=== PATIENT | female | born 1945 | race Caucasian/White ===

== ENCOUNTER → 2018-11-06 | Outpatient (CLI) | payer MEDICARE, OTHER | LOC: LAB SHORT 18:04 → LAB EV 18:04 | DX: R30.0 Dysuria (principal) | CPT/HCPCS: 87077; 87086; 87186 ==

== ENCOUNTER → 2019-06-25 | Outpatient (CLI) | payer MEDICARE, OTHER | END | disposition home or self-care (01) | LOC: LAB SHORT 14:00 → LAB 14:00 | DX: N39.0 Urinary tract infection, site not specified (principal) | CPT/HCPCS: 87077; 87086; 87186 ==

== ENCOUNTER 2020-11-10 14:49 | Emergency (ER) | payer MEDICARE, OTHER ==
[~2020-11-10] VITALS: Ht 165.1 cm; Wt 63.5 kg
[~2020-11-10 14:49] MED LIST: VENL75ER PO; XANAX0.25 MG PO; ZESTRIL40 M1 PO
[2020-11-10] MEDS ORDERED: CLON.1 PO (15:00)
[2020-11-10] MEDS ORDERED: AMLODIPINE BESYL5 MG PO (15:01)
[2020-11-10 15:40] LABS: BASOPHILS ABSOLUTE AUTO 0.04 K/mm3 (0.00-0.23); BASOPHILS PERCENT AUTO 1 % (0-2); EOSINOPHILS PERCENT AUTO 0 % (0-6); Hematocrit 38.6 % (33.0-51.0); Hemoglobin 13.3 g/dL (11.5-16.0); IMMATURE GRAN ABSOLUTE AUTO 0.02 K/mm3 (0.00-0.10); IMMATURE GRAN PERCENT AUTO 0 % (0-1); LYMPHOCYTES ABSOLUTE AUTO 0.62 K/mm3 (0.84-5.20); LYMPHOCYTES PERCENT AUTO 8 % (21-46); MONOCYTES ABSOLUTE AUTO 0.45 K/mm3 (0.16-1.47); MONOCYTES PERCENT AUTO 6 % (4-13); Mean Corpuscular HGB 33.3 pg (26.0-34.0); Mean Corpuscular HGB Conc 34.5 g/dL (31.5-36.5); Mean Corpuscular Volume 97 fL (80-100); Mean Platelet Volume 9.6 fL (9.1-12.4); NEUTROPHILS ABSOLUTE AUTO 6.68 K/mm3 (1.96-9.15); NEUTROPHILS PERCENT AUTO 86 % (41-73); Platelet Count 258 K/mm3 (150-400); RDW Coefficient Variation 12.1 % (11.7-14.2); RDW Standard Deviation 43.6 fL (35.1-46.3); Red Blood Cell Count 3.99 M/mm3 (3.80-5.20); White Blood Cell Count 7.81 K/mm3 (4.00-11.30)
[2020-11-10 15:59] LABS: Alanine Aminotransfer (ALT/SGP 25 U/L (12-78); Albumin/Globulin Ratio 1.1 (0.8-1.8); Alk Phos 63 U/L (50-136); Anion Gap 7 mmol/L (6-16); Aspartate Aminotrans (AST/SGOT 18 U/L (12-37); Bilirubin, Total 0.4 mg/dL (0.1-1.0); Blood Urea Nitrogen 14 mg/dL (8-24); Bun/Creatinine Ratio 16.2 (12.0-20.0); CO2, Blood 24 mmol/L (21-32); Chloride, Blood 103 mmol/L (98-108); Creatinine, Blood 0.86 mg/dL (0.40-1.00); Globulin, Blood 3.5 g/dL (2.2-4.0); Glomerular Filtration Rate >60 (60-); Glucose, Blood 138 mg/dL (70-99); Sodium, Blood 134 mmol/L (136-145); Total Protein, Blood 7.5 g/dL (6.4-8.2); Troponin I <0.015 ng/mL (0.000-0.040)
[2020-11-10 16:02] LABS: International Normalized Ratio 1.02
[2020-11-10 18:04] LABS: Source, Urine Clean Catch
[2020-11-10] MEDS ORDERED: ONDA4 PO (18:24)
[2020-11-10 18:29] LABS: Appearance, Urine Clear (Clear); Bilirubin, Urine Neg (Neg); Blood, Urine 1+ (Neg); Color, Urine Yellow (P-Yellow); Glucose Qualitative, Urine Neg (Neg); Ketones, Urine Neg (Neg); Leukocyte Esterase, Urine Neg (Neg); Nitrite, Urine Neg (Neg); Protein, Urine Neg (Neg); Urobilinogen, Urine NORM (Normal)
[2020-11-10 18:40] LABS: Bacteria Few /hpf; Red Blood Cells, Urine Not Seen /hpf (0-2); Squamous Epithelial Cells Few /hpf (Few); White Blood Cells, Urine Rare /hpf (0-5)
[2020-11-13 11:08] LABS: APTT 30.6 sec (22.9-30.2)
== END 2020-11-10 18:35 | disposition home or self-care (01) ==
LOC: ER 14:49
PROVIDERS: Physician Assistant
DX: H81.10 Benign paroxysmal vertigo, unspecified ear (principal); Z88.0 Allergy status to penicillin; Z88.5 Allergy status to narcotic agent; Z79.899 Other long term (current) drug therapy; I10 Essential (primary) hypertension
CPT/HCPCS: 36415; 70450; 70496; 70498; 71045; 80053; 81001; 83690; 84484; 85025; 85610; 85730; 85732; 93005; 93010; 99285-25; J7030; Q9967

== ENCOUNTER → 2021-03-14 | Outpatient (CLI) | payer MEDICARE, OTHER ==
[~2021-03-14] MED LIST changes: +AMLODIPINE BESYL5 MG PO; +CLON.1 PO; +ONDA4 PO
[2021-03-14 18:45] LABS: BASOPHILS ABSOLUTE AUTO 0.02 K/mm3 (0.00-0.23); BASOPHILS PERCENT AUTO 0 % (0-2); EOSINOPHILS ABSOLUTE AUTO 0.02 K/mm3 (0.00-0.68); EOSINOPHILS PERCENT AUTO 0 % (0-6); Hematocrit 35.2 % (33.0-51.0); Hemoglobin 12.5 g/dL (11.5-16.0); IMMATURE GRAN ABSOLUTE AUTO 0.01 K/mm3 (0.00-0.10); IMMATURE GRAN PERCENT AUTO 0 % (0-1); LYMPHOCYTES ABSOLUTE AUTO 1.39 K/mm3 (0.84-5.20); LYMPHOCYTES PERCENT AUTO 23 % (21-46); MONOCYTES ABSOLUTE AUTO 0.75 K/mm3 (0.16-1.47); MONOCYTES PERCENT AUTO 13 % (4-13); Mean Corpuscular HGB 34.8 pg (26.0-34.0); Mean Corpuscular HGB Conc 35.5 g/dL (31.5-36.5); Mean Corpuscular Volume 98 fL (80-100); NEUTROPHILS ABSOLUTE AUTO 3.75 K/mm3 (1.96-9.15); NEUTROPHILS PERCENT AUTO 63 % (41-73); Platelet Count 360 K/mm3 (150-400); RDW Coefficient Variation 12.2 % (11.7-14.2); RDW Standard Deviation 44.3 fL (35.1-46.3); Red Blood Cell Count 3.59 M/mm3 (3.80-5.20); White Blood Cell Count 5.94 K/mm3 (4.00-11.30)
[2021-03-14 18:54] LABS: Albumin, Blood 4.7 g/dL (3.4-5.0); Albumin/Globulin Ratio 1.5 (0.8-1.8); Bilirubin, Total 0.5 mg/dL (0.1-1.0); Bun/Creatinine Ratio 10.8 (12.0-20.0); Creatinine, Blood 1.11 mg/dL (0.40-1.00); Globulin, Blood 3.2 g/dL (2.2-4.0); Total Protein, Blood 7.9 g/dL (6.4-8.2)
== END | disposition home or self-care (01) ==
LOC: LAB SHORT 18:40
PROVIDERS: Physician Assistant
DX: R21 Rash and other nonspecific skin eruption (principal)
CPT/HCPCS: 80053; 85025

== ENCOUNTER 2023-04-25 18:46 | Inpatient (IN) | payer OTHER, MEDICARE ==
[~2023-04-25] VITALS: Ht 165.1 cm; Wt 69.0 kg
[2023-04-25 22:19] LABS: BASOPHILS ABSOLUTE AUTO 0.03 K/mm3 (0.00-0.23); BASOPHILS PERCENT AUTO 0 % (0-2); EOSINOPHILS ABSOLUTE AUTO 0.09 K/mm3 (0.00-0.68); EOSINOPHILS PERCENT AUTO 1 % (0-6); Hematocrit 32.8 % (33.0-51.0); Hemoglobin 11.1 g/dL (11.5-16.0); IMMATURE GRAN ABSOLUTE AUTO 0.04 K/mm3 (0.00-0.10); IMMATURE GRAN PERCENT AUTO 1 % (0-1); LYMPHOCYTES ABSOLUTE AUTO 0.71 K/mm3 (0.84-5.20); LYMPHOCYTES PERCENT AUTO 9 % (21-46); MONOCYTES ABSOLUTE AUTO 0.51 K/mm3 (0.16-1.47); MONOCYTES PERCENT AUTO 6 % (4-13); Mean Corpuscular HGB 33.8 pg (26.0-34.0); Mean Corpuscular HGB Conc 33.8 g/dL (31.5-36.5); Mean Corpuscular Volume 100 fL (80-100); Mean Platelet Volume 10.2 fL (9.1-12.4); NEUTROPHILS ABSOLUTE AUTO 6.56 K/mm3 (1.96-9.15); NEUTROPHILS PERCENT AUTO 83 % (41-73); Platelet Count 286 K/mm3 (150-400); RDW Coefficient Variation 12.1 % (11.7-14.2); RDW Standard Deviation 44.9 fL (35.1-46.3); Red Blood Cell Count 3.28 M/mm3 (3.80-5.20); White Blood Cell Count 7.94 K/mm3 (4.00-11.30)
[2023-04-25 22:31] LABS: Albumin, Blood 3.8 g/dL (3.4-5.0); Albumin/Globulin Ratio 1.3 (0.8-1.8); Bilirubin, Total 0.3 mg/dL (0.1-1.0); Bun/Creatinine Ratio 12.9 (12.0-20.0); Calcium, Blood 8.4 mg/dL (8.5-10.1); Creatinine, Blood 1.01 mg/dL (0.40-1.00); Potassium, Blood 3.6 mmol/L (3.5-5.5); Total Protein, Blood 6.8 g/dL (6.4-8.2)
[2023-04-26] VITALS (8 sets, daily range): BP systolic 135–167; BP diastolic 57–97
--- NOTE | 2023-04-26 01:20 | NUR ---
ARRIVAL TO UNIT PT ARRIVED TO UNIT VIA GURNEY AT 0010. TRANSFERRED TO BED BY SLIDER SHEET. PT IN 2L NC, HAS PUREWICK IN PLACE. PT ALERT AND ORIENTED X2, PERSON AND PLACE. NEEDS TO BE REMINDED ABOUT THINGS, VERY UNSURE OF WHAT IS GOING ON. PT VERY AGREEABLE TO ALL CARE. LLE EXTREMITY SHORTENED, PT ABLE TO WIGGLE TOES, STRONG PEDAL PULSES, DENIES RADHA N/T. PT ENDORSES PAIN. MEDICATED PER EMAR. PT NPO, FLUIDS RUNNING, NO OTHER QUESTIONS AT THIS TIME. CALL LIGHT WITHIN REACH
--- NOTE | 2023-04-26 05:07 | NUR ---
SHIFT SUMMARY NO CHANGES SINCE COMING TO THE FLOOR. PT COMPLAIONS OF PAIN, MEDICATED PER EMAR. PUREWICK IN PLACE, DRAINING CLEAR YELLOW URINE. PT FORGETFUL, NEEDS REMINDING OF THINGS. CALLS OUT OCCASIONALLY. REMINDED TO USE CALL LIGHT IF NEEDING ASSISTANCE. IV FLUIDS RUNNING, NPO SINCE ARRIVAL. NO OTHER CONCERNS AT THIS TIME, CALL LIGHT WITHIN REACH.
[2023-04-26 05:57] LABS: BASOPHILS ABSOLUTE AUTO 0.03 K/mm3 (0.00-0.23); BASOPHILS PERCENT AUTO 0 % (0-2); EOSINOPHILS PERCENT AUTO 0 % (0-6); Hemoglobin 11.7 g/dL (11.5-16.0); IMMATURE GRAN ABSOLUTE AUTO 0.09 K/mm3 (0.00-0.10); IMMATURE GRAN PERCENT AUTO 1 % (0-1); LYMPHOCYTES PERCENT AUTO 2 % (21-46); MONOCYTES ABSOLUTE AUTO 1.17 K/mm3 (0.16-1.47); MONOCYTES PERCENT AUTO 6 % (4-13); Mean Corpuscular HGB 34.5 pg (26.0-34.0); Mean Corpuscular HGB Conc 35.5 g/dL (31.5-36.5); Mean Corpuscular Volume 97 fL (80-100); Mean Platelet Volume 10.1 fL (9.1-12.4); NEUTROPHILS ABSOLUTE AUTO 16.82 K/mm3 (1.96-9.15); NEUTROPHILS PERCENT AUTO 91 % (41-73); Platelet Count 281 K/mm3 (150-400); RDW Coefficient Variation 11.9 % (11.7-14.2); RDW Standard Deviation 42.5 fL (35.1-46.3); Red Blood Cell Count 3.39 M/mm3 (3.80-5.20); White Blood Cell Count 18.51 K/mm3 (4.00-11.30)
[2023-04-26 06:56] LABS: Bun/Creatinine Ratio 11.6 (12.0-20.0); Calcium, Blood 8.9 mg/dL (8.5-10.1); Creatinine, Blood 0.95 mg/dL (0.40-1.00)
[2023-04-26 12:04] LABS: Source, Urine Foley catheter
[2023-04-26 12:23] LABS: Appearance, Urine Hazy (Clear); Bilirubin, Urine Neg (Neg); Blood, Urine 1+ (Neg); Glucose Qualitative, Urine Neg (Neg); Ketones, Urine Neg (Neg); Leukocyte Esterase, Urine 2+ (Neg); Nitrite, Urine Neg (Neg); Protein, Urine Neg (Neg); Specific Gravity, Urine 1.015 (1.003-1.022); Urobilinogen, Urine NORM (Normal)
[2023-04-26 13:10] LABS: Color, Urine Pale Yellow (P-Yellow)
[2023-04-26 13:13] LABS: Bacteria Many /hpf; Red Blood Cells, Urine 0-2 /hpf (0-2); Squamous Epithelial Cells Rare /hpf (Few)
[2023-04-27 04:11] VITALS: BP 158/73
--- NOTE | 2023-04-27 05:58 | NUR ---
TO CT/RADIOLOGY VIA STRETCHER.
[2023-04-27 06:01] LABS: BASOPHILS ABSOLUTE AUTO 0.03 K/mm3 (0.00-0.23); BASOPHILS PERCENT AUTO 0 % (0-2); EOSINOPHILS ABSOLUTE AUTO 0.26 K/mm3 (0.00-0.68); EOSINOPHILS PERCENT AUTO 3 % (0-6); Hematocrit 33.2 % (33.0-51.0); Hemoglobin 11.4 g/dL (11.5-16.0); IMMATURE GRAN ABSOLUTE AUTO 0.02 K/mm3 (0.00-0.10); IMMATURE GRAN PERCENT AUTO 0 % (0-1); LYMPHOCYTES ABSOLUTE AUTO 1.05 K/mm3 (0.84-5.20); LYMPHOCYTES PERCENT AUTO 11 % (21-46); MONOCYTES ABSOLUTE AUTO 0.71 K/mm3 (0.16-1.47); MONOCYTES PERCENT AUTO 7 % (4-13); Mean Corpuscular HGB 34.3 pg (26.0-34.0); Mean Corpuscular HGB Conc 34.3 g/dL (31.5-36.5); Mean Corpuscular Volume 100 fL (80-100); Mean Platelet Volume 9.5 fL (9.1-12.4); NEUTROPHILS ABSOLUTE AUTO 7.77 K/mm3 (1.96-9.15); NEUTROPHILS PERCENT AUTO 79 % (41-73); Platelet Count 239 K/mm3 (150-400); RDW Coefficient Variation 12.1 % (11.7-14.2); RDW Standard Deviation 44.4 fL (35.1-46.3); Red Blood Cell Count 3.32 M/mm3 (3.80-5.20); White Blood Cell Count 9.84 K/mm3 (4.00-11.30)
[2023-04-27 06:26] LABS: Albumin, Blood 3.3 g/dL (3.4-5.0); Anion Gap 4 mmol/L (6-16); Blood Urea Nitrogen 12 mg/dL (8-24); CO2, Blood 28 mmol/L (21-32); Calcium, Blood 8.7 mg/dL (8.5-10.1); Chloride, Blood 96 mmol/L (98-108); Creatinine, Blood 1.09 mg/dL (0.40-1.00); Glomerular Filtration Rate 52 (60-); Glucose, Blood 103 mg/dL (70-99); Magnesium, Blood 2.1 mg/dL (1.6-2.4); Phosphorus, Blood 2.6 mg/dL (2.5-4.9); Potassium, Blood 3.7 mmol/L (3.5-5.5); Sodium, Blood 128 mmol/L (136-145)
[2023-04-27 08:29] VITALS: BP 154/81
[2023-04-27 15:08] VITALS: BP 131/68
--- NOTE | 2023-04-27 17:54 | NUR ---
SHIFT SUMMARY PATIENT IS AOX2-3 HX OF DEMENTIA,ABLE TO ANSWER SIMPLE QUESTIONS. PATIENT HAD BATH AND ABLE TO EAT TODAY, FAMILY MEMBERS UPDATED OF PLAN FOR SURGERY TOMORROW. PATIENT STARTED ON ABX FOR UTI. CRAWFORD CATH IN PLACE PATENT DRAINING TO GRAVITY. NEW IV IN LEFT WRIST PLACED TODAY. VSS, BED ALARM FOR SAFETY, CALL LIGHT IN REACH.
[2023-04-27 19:42] VITALS: BP 147/89
[2023-04-28] VITALS (17 sets, daily range): BP systolic 118–198; BP diastolic 49–85
--- NOTE | 2023-04-28 06:26 | NUR ---
SHIFT SUMMARY L HIP FX, EXTERNALLY ROTATED AWAITING SURGERY TODAY. NPO @MT. CRAWFORD IN PLACE DRAINING LIGHT YELLOW URINE. IV INFUSING 50ML/HR NS. O2 2L NC W/ CONTINUOUS BIOX. PT ALERT W/ HX: DEMENTIA. AWAKE MOST OF THE NIGHT. PT CONTINUES TO REMOVE BIOX SENSOR, ATTENDS, PILLOWS, BUT DOES NOT ATTEMPT TO GET OUT OF BED. PT MEDICATED 2X FOR PAIN AND BENADRYL FOR ITCHING. HYDROLAZINE ADMINISTERED FOR ELEVATED BP. IV ABX ORDERED FOR UTI THAT WAS FOUND AFTER ADMIT. CALL LIGHT W/IN REACH
[2023-04-28 06:41] LABS: BASOPHILS ABSOLUTE AUTO 0.03 K/mm3 (0.00-0.23); BASOPHILS PERCENT AUTO 0 % (0-2); EOSINOPHILS ABSOLUTE AUTO 0.22 K/mm3 (0.00-0.68); EOSINOPHILS PERCENT AUTO 2 % (0-6); Hematocrit 32.2 % (33.0-51.0); Hemoglobin 11.2 g/dL (11.5-16.0); IMMATURE GRAN ABSOLUTE AUTO 0.05 K/mm3 (0.00-0.10); IMMATURE GRAN PERCENT AUTO 1 % (0-1); LYMPHOCYTES ABSOLUTE AUTO 0.51 K/mm3 (0.84-5.20); LYMPHOCYTES PERCENT AUTO 5 % (21-46); MONOCYTES ABSOLUTE AUTO 0.82 K/mm3 (0.16-1.47); MONOCYTES PERCENT AUTO 8 % (4-13); Mean Corpuscular HGB 35.4 pg (26.0-34.0); Mean Corpuscular HGB Conc 34.8 g/dL (31.5-36.5); Mean Corpuscular Volume 102 fL (80-100); Mean Platelet Volume 9.8 fL (9.1-12.4); NEUTROPHILS ABSOLUTE AUTO 8.24 K/mm3 (1.96-9.15); NEUTROPHILS PERCENT AUTO 84 % (41-73); Platelet Count 241 K/mm3 (150-400); RDW Standard Deviation 45.1 fL (35.1-46.3); Red Blood Cell Count 3.16 M/mm3 (3.80-5.20); White Blood Cell Count 9.87 K/mm3 (4.00-11.30)
[2023-04-28 07:11] LABS: Albumin, Blood 3.2 g/dL (3.4-5.0); Anion Gap 4 mmol/L (6-16); Blood Urea Nitrogen 14 mg/dL (8-24); Bun/Creatinine Ratio 10.6 (12.0-20.0); CO2, Blood 29 mmol/L (21-32); Chloride, Blood 100 mmol/L (98-108); Creatinine, Blood 1.32 mg/dL (0.40-1.00); Glomerular Filtration Rate 42 (60-); Glucose, Blood 115 mg/dL (70-99); Phosphorus, Blood 2.4 mg/dL (2.5-4.9); Potassium, Blood 3.7 mmol/L (3.5-5.5); Sodium, Blood 133 mmol/L (136-145)
--- NOTE | 2023-04-28 12:54 | NUR ---
TO DAY SURGERY VIA HOSPITAL BED
--- NOTE | 2023-04-28 17:48 | NUR ---
SHIFT SUMMARY PT A&OX4, VSS/RA, SATHYA PO, CRAWFORD PATENT & DRAINING YELLOW URINE/STAT LOCK ON/ OFF FLOOR, DENIES PAIN AT THIS TIME, S/P L TYESHA, PRINEO DRY/INTACT, WIGGLES TOES, TEDS/PAS/POLAR KAILEY. WILL REPORT TO ONCOMING NOC RN.
--- NOTE | 2023-04-29 05:15 | NUR ---
SUMMARY PT HAS REPORTED INCREASED ABD DISCOMFORT THIS AM. PT REPORTS SHE FEELS CONSTIPATED. PT DENIES SIGNIFICANT HIP PAIN. PT DRESSING IS DRY AND INTACT. PT DOES BECOME CONFUSED DURING THE NIGHT. PT CRAWFORD IS DRAINING TO GRAVITY. CALL LIGHT IN REACH AND BED ALARM ON.
[2023-04-29 07:19] VITALS: BP 123/47
[2023-04-29 07:41] LABS: BASOPHILS ABSOLUTE AUTO 0.01 K/mm3 (0.00-0.23); BASOPHILS PERCENT AUTO 0 % (0-2); EOSINOPHILS ABSOLUTE AUTO 0.01 K/mm3 (0.00-0.68); EOSINOPHILS PERCENT AUTO 0 % (0-6); Hematocrit 29.7 % (33.0-51.0); Hemoglobin 10.1 g/dL (11.5-16.0); IMMATURE GRAN ABSOLUTE AUTO 0.05 K/mm3 (0.00-0.10); IMMATURE GRAN PERCENT AUTO 0 % (0-1); LYMPHOCYTES ABSOLUTE AUTO 0.37 K/mm3 (0.84-5.20); LYMPHOCYTES PERCENT AUTO 3 % (21-46); MONOCYTES ABSOLUTE AUTO 1.02 K/mm3 (0.16-1.47); MONOCYTES PERCENT AUTO 8 % (4-13); Mean Corpuscular HGB 34.7 pg (26.0-34.0); Mean Corpuscular Volume 102 fL (80-100); Mean Platelet Volume 9.8 fL (9.1-12.4); NEUTROPHILS ABSOLUTE AUTO 11.25 K/mm3 (1.96-9.15); NEUTROPHILS PERCENT AUTO 89 % (41-73); Platelet Count 259 K/mm3 (150-400); RDW Coefficient Variation 12.3 % (11.7-14.2); RDW Standard Deviation 45.6 fL (35.1-46.3); Red Blood Cell Count 2.91 M/mm3 (3.80-5.20); White Blood Cell Count 12.71 K/mm3 (4.00-11.30)
[2023-04-29 08:07] LABS: BASOPHILS PERCENT MAN 0 % (0-2); EOSINOPHILS PERCENT MAN 0 % (0-6); LYMPHOCYTES ABSOLUTE MAN 0.63 K/mm3 (0.84-5.20); LYMPHOCYTES PERCENT MAN 5 % (21-46); MONOCYTES ABSOLUTE MAN 0.76 K/mm3 (0.16-1.47); MONOCYTES PERCENT MAN 6 % (4-13); NEUTROPHILS ABSOLUTE MAN 11.31 K/mm3 (1.96-9.15); SEG NEUTROPHILS PERCENT MAN 89 % (41-73); TOTAL CELLS COUNTED 100
[2023-04-29 08:15] LABS: Bun/Creatinine Ratio 12.5 (12.0-20.0); Calcium, Blood 8.8 mg/dL (8.5-10.1); Creatinine, Blood 1.36 mg/dL (0.40-1.00); Potassium, Blood 4.8 mmol/L (3.5-5.5)
--- NOTE | 2023-04-29 11:15 | NUR ---
"Spiritual Care | Pt. request. Pt. is awake in bed and welcomes my visit. Pt. verbalized intitial curiosity of how I found out she was a Pt. Normalized the Pt. experience. Pt. displays evidence of understandng and acceptance. Facilitated a life review and considered matterts of leo and belief. Listen with empathy, interest, and a calming presence. Pt. expressed emotion from time to time but displayed evidence of appropriate concern. Pt. verbalized a desire for this national accounts sales to let her tile shader in [place] know that she was in the hospital. Another visitor arrived so I prayed with the Pt. Pt. verbalized gratitude for the spiritual care visit."
[2023-04-29 14:32] VITALS: BP 128/48
--- NOTE | 2023-04-29 16:35 | NUR ---
"Spiritual Care follow up | nurse request Pt. is sitting up in a chair and welcomes my visit. Much of this follow up visit focused on life review. Pt. verbalized story of growing up in [place] and moving to [place]. Pt. displayed evidnece of great lalitha as she was telling her story. Pt. verbalized gratitude for the spiritual care visit and welcomed this surveillance dual rate officer to return."
--- NOTE | 2023-04-29 18:05 | NUR ---
SHIFT SUMMARY PT IS POD#[address] PADILLA. PT HAS BEEN A 1 ASSIST WHEN OOB AND HAS BEEN UP TO THE CHAIR TODAY. TAB ALARM IN PLACE WHEN UP TO THE CHAIR, BED ALARM IN BED. PT IS FORGETFUL, SHE HAS BEEN ALERT AND ORIENTED X 3 TODAY. PT HAS HAD FRIENDS AT THE BEDSUDE FOR SUPPORT. PT HAS HAD INCREASED CONFUSION AND FORGETFULNESS THIS EVENING R/T BASELINE DEMENTIA. PT HAS MINIMAL PAIN, TYLENOL SCHEDULED FOR PAIN MANAGEMENT. BOWEL CARE STARTED.
[2023-04-29 19:19] VITALS: BP 154/71
[2023-04-30 03:55] VITALS: BP 169/71
--- NOTE | 2023-04-30 04:53 | NUR ---
SHIFT SUMMARY POD 2 L TYESHA PT PAIN MANAGED PER EMAR. TOLERING PO INTAKE, VOIDING, PASSING GAS, NO BOWEL MOVEMENT. ABD DISTENDED MILDLY. PT NEEDS SOME REORIENTATION DURING NIGHT. NEEDED REMINDED TO USE CALL LIGHT WHEN NEEDING THE BATHROOM. 1 PERSON ASST. WITH FWW AND GAIT BELT. PLAN FOR DISCHARGE TO [facility] TODAY. NO OTHER CONCERNS AT THIS TIME. CALL LIGHT WITHIN REACH.
[2023-04-30 05:02] VITALS: BP 165/60
[2023-04-30 07:29] VITALS: BP 149/71
[2023-04-30 08:42] LABS: BASOPHILS ABSOLUTE AUTO 0.03 K/mm3 (0.00-0.23); BASOPHILS PERCENT AUTO 0 % (0-2); EOSINOPHILS PERCENT AUTO 3 % (0-6); Hematocrit 27.8 % (33.0-51.0); Hemoglobin 9.5 g/dL (11.5-16.0); IMMATURE GRAN ABSOLUTE AUTO 0.03 K/mm3 (0.00-0.10); IMMATURE GRAN PERCENT AUTO 0 % (0-1); LYMPHOCYTES ABSOLUTE AUTO 0.72 K/mm3 (0.84-5.20); LYMPHOCYTES PERCENT AUTO 7 % (21-46); MONOCYTES PERCENT AUTO 12 % (4-13); Mean Corpuscular HGB 34.8 pg (26.0-34.0); Mean Corpuscular HGB Conc 34.2 g/dL (31.5-36.5); Mean Corpuscular Volume 102 fL (80-100); Mean Platelet Volume 9.5 fL (9.1-12.4); NEUTROPHILS PERCENT AUTO 77 % (41-73); Platelet Count 264 K/mm3 (150-400); RDW Coefficient Variation 12.4 % (11.7-14.2); RDW Standard Deviation 46.4 fL (35.1-46.3); Red Blood Cell Count 2.73 M/mm3 (3.80-5.20); White Blood Cell Count 9.68 K/mm3 (4.00-11.30)
[2023-04-30 09:38] LABS: Bun/Creatinine Ratio 11.6 (12.0-20.0); Calcium, Blood 8.8 mg/dL (8.5-10.1); Creatinine, Blood 1.29 mg/dL (0.40-1.00); Potassium, Blood 4.2 mmol/L (3.5-5.5)
--- NOTE | 2023-04-30 11:13 | NUR ---
PATIENT WILL BE DISCHARGING TO [facility] AT 1545 TODAY WITH TRANSPORT. THIS NURSE TRIED GIVING REPORT TO THE [facility] NURSE HOWEVER, SHE WAS UNABLE TO RECIEVE REPORT AT THIS TIME BUT WOULD CALL THE FLOOR WHEN READY.
--- NOTE | 2023-04-30 11:20 | NUR ---
Pt. is sitting up in bed and welcomes my visit. Pt. verbalizes that she will be going home and needed assistance to call her neighbor. Prayed with Pt. Pt. verbalizedgratitude for the spiritual care visit.
--- NOTE | 2023-04-30 13:40 | NUR ---
DISCHARGE NOTE: THIS NURSE CALLED [facility] TO GIVE REPORT. [facility] RECIEV[facility]PORT. AFTER REPORT JENNIFER RN HAD NO FURTHER QUESTIONS AT THIS TIME. PATIENTS HARD PERSCRIPTION IS IN HER DISCHARGE FOLDER. HER LEFT HIP HAS THE PRIMEO DRESSING THAT IS C/D/I. PATIENT DENIES NUMBNESS OR TINGLING IN ALL EXTREMITIES. SHE IS A SBA WITH FWW AND GAIT BELT. PATIENT IS TOLERATING PO INTAKE AND IS VOIDING/HAD A BM THIS MORNING. SHE IS DRESSED AND HAS PERSONAL ITEMS IN THE ROOM GATHERED. SHE IS SITTING UP IN THE RECLINER CHAIR WITH CALL LIGHT IN REACH AND TAB ALARM ON. TRANSPORT IS TO ARRIVE TO TAKE PATIENT TO [facility] AT 1545 TODAY.
--- NOTE | 2023-04-30 16:30 | NUR ---
PATIENTS TRANSPORT ARRIVED AND WAS WHEELCHAIRED OUT TO THE TRANSPORT VAN [facility]. SHE HAS ALL OF HER PERSONAL ITEMS IN THE ROOM GATHERED AND WITH HER. THE TRANSPORTER WAS GIVEN THE FOLDER WITH THE HARD SCRIPT AND OTHER INFORMATION.
== END 2023-04-30 16:32 | DRG 522 ==
LOC: ER 18:46 → SURS 18:47
PROVIDERS: Family Medicine; Internal Medicine; Orthopaedic Surgery; Student in an Organized Health Care Education/Training Program; ADMIT Family Medicine
PROC: 0SRB04A Replacement of Left Hip Joint with Ceramic on Polyethylene Synthetic Substitute, Uncemented, Open Approach (ICD-10-PCS; principal; 2023-04-28 13:30)
DX: S72.032A Displaced midcervical fracture of left femur, initial encounter for closed fracture (principal); E87.1 Hypo-osmolality and hyponatremia; N39.0 Urinary tract infection, site not specified; W01.0XXA Fall on same level from slipping, tripping and stumbling without subsequent striking against object, initial encounter; F41.9 Anxiety disorder, unspecified; F03.90 Unspecified dementia, unspecified severity, without behavioral disturbance, psychotic disturbance, mood disturbance, and anxiety; I12.9 Hypertensive chronic kidney disease with stage 1 through stage 4 chronic kidney disease, or unspecified chronic kidney disease; N18.30 Chronic kidney disease, stage 3 unspecified; R73.9 Hyperglycemia, unspecified; E83.51 Hypocalcemia; D64.9 Anemia, unspecified; R11.2 Nausea with vomiting, unspecified; Y93.01 Activity, walking, marching and hiking; Y92.009 Unspecified place in unspecified non-institutional (private) residence as the place of occurrence of the external cause; Z88.0 Allergy status to penicillin; Z88.5 Allergy status to narcotic agent; Z85.3 Personal history of malignant neoplasm of breast; Z90.11 Acquired absence of right breast and nipple; Z28.21 Immunization not carried out because of patient refusal
CPT/HCPCS: 36415; 72170; 72192; 73502; 73552; 80048; 80053; 80069; 81001; 82570; 83735; 84300; 84540; 85025; 87077; 87086; 87186; 90471; 90715; 93005; 93010; 94762; 96374; 96375; 97110; 97116; 97162; 97165; 97530; 99285-25; A9270; C1776; J0171; J0360; J0690; J0735; J1100; J1644; J1885; J1956; J2270; J2371; J2405; J2704; J2795; J3010; J7030; J7120

== ENCOUNTER 2025-01-05 09:24 | Emergency (ER) | payer MEDICARE ==
[~2025-01-05] VITALS: Ht 172.7 cm; Wt 61.2 kg
[2025-01-05] MEDS ORDERED: ACET325 PO (09:59)
[2025-01-05] MEDS ORDERED: AMLO5 PO (09:59)
[2025-01-05] MEDS ORDERED: Coreg12.5 MG PO (10:00)
[2025-01-05] MEDS ORDERED: DONE5 PO (10:00)
[2025-01-05] MEDS ORDERED: ZESTRIL40 M1 PO (10:01)
[2025-01-05] MEDS ORDERED: MEMA10 PO (10:01)
[2025-01-05] MEDS ORDERED: IMODIUM A-D2 M3 PO (10:01)
[2025-01-05 10:26] LABS: BASOPHILS ABSOLUTE AUTO 0.04 K/mm3 (0.00-0.23); BASOPHILS PERCENT AUTO 1 % (0-2); EOSINOPHILS ABSOLUTE AUTO 0.36 K/mm3 (0.00-0.68); EOSINOPHILS PERCENT AUTO 5 % (0-6); Hematocrit 32.3 % (33.0-51.0); Hemoglobin 11.3 g/dL (11.5-16.0); IMMATURE GRAN ABSOLUTE AUTO 0.02 K/mm3 (0.00-0.10); IMMATURE GRAN PERCENT AUTO 0 % (0-1); LYMPHOCYTES ABSOLUTE AUTO 0.90 K/mm3 (0.84-5.20); LYMPHOCYTES PERCENT AUTO 12 % (21-46); MONOCYTES ABSOLUTE AUTO 0.74 K/mm3 (0.16-1.47); MONOCYTES PERCENT AUTO 10 % (4-13); Mean Corpuscular HGB Conc 35.0 g/dL (31.5-36.5); Mean Corpuscular Volume 98 fL (80-100); NEUTROPHILS ABSOLUTE AUTO 5.23 K/mm3 (1.96-9.15); NEUTROPHILS PERCENT AUTO 72 % (41-73); NRBC ABSOLUTE 0.00 K/mm3 (0.00-0.02); NRBC Auto 0.0 /100 WBC (0.0-0.2); Platelet Count 235 K/mm3 (150-400); RDW Coefficient Variation 11.7 % (11.7-14.2); RDW Standard Deviation 42.5 fL (35.1-46.3)
[2025-01-05 10:26] LABS: Source, Urine Clean Catch
[2025-01-05 10:31] LABS: Bilirubin, Urine Neg (Neg); Color, Urine Yellow (P-Yellow); Glucose Qualitative, Urine Neg (Neg); Ketones, Urine Neg (Neg); Leukocyte Esterase, Urine 1+ (Neg); Protein, Urine Neg (Neg); Specific Gravity, Urine 1.005 (1.003-1.022); Urobilinogen, Urine NORM (Normal)
[2025-01-05 10:39] LABS: Red Blood Cells, Urine 0-2 /hpf (0-2)
[2025-01-05 10:49] LABS: Alanine Aminotransfer (ALT/SGP 39.0 U/L (12-78); Albumin, Blood 3.6 g/dL (3.4-5.0); Albumin/Globulin Ratio 1.1 (0.8-1.8); Anion Gap 8.0 mmol/L (3-11); Aspartate Aminotrans (AST/SGOT 28.0 U/L (12-37); Bilirubin, Total 0.4 mg/dL (0.1-1.0); Blood Urea Nitrogen 14.0 mg/dL (8-24); CO2, Blood 27.0 mmol/L (21-32); Calcium, Blood 8.7 mg/dL (8.5-10.1); Chloride, Blood 98.0 mmol/L (98-108); Creatinine, Blood 1.04 mg/dL (0.40-1.00); Globulin, Blood 3.4 g/dL (2.2-4.0); Glucose, Blood 109.0 mg/dL (70-99); Magnesium, Blood 2.2 mg/dL (1.6-2.4); Potassium, Blood 4.3 mmol/L (3.5-5.5); Sodium, Blood 129.0 mmol/L (136-145); Total Protein, Blood 7.0 g/dL (6.4-8.2)
[2025-01-05 11:30] VITALS: BP 148/72
== END 2025-01-05 11:55 | disposition home or self-care (01) ==
LOC: ER 09:24
PROVIDERS: Student in an Organized Health Care Education/Training Program
DX: R55 Syncope and collapse (principal); I12.9 Hypertensive chronic kidney disease with stage 1 through stage 4 chronic kidney disease, or unspecified chronic kidney disease; N18.9 Chronic kidney disease, unspecified; G20.A1 Parkinson's disease without dyskinesia, without mention of fluctuations; F02.80 Dementia in other diseases classified elsewhere, unspecified severity, without behavioral disturbance, psychotic disturbance, mood disturbance, and anxiety; Z88.0 Allergy status to penicillin; Z88.1 Allergy status to other antibiotic agents; Z88.5 Allergy status to narcotic agent; Z79.899 Other long term (current) drug therapy
CPT/HCPCS: 80053; 81001; 83735; 84484; 85025; 87086; 93005; 93010; 99283-25

== ENCOUNTER 2025-01-08 10:36 | Emergency (ER) | payer MEDICARE ==
[~2025-01-08] VITALS: Ht 165.1 cm; Wt 59.0 kg
[~2025-01-08 10:36] MED LIST changes: +ACET325 PO; +AMLO5 PO; +Coreg12.5 MG PO; +DONE5 PO; +IMODIUM A-D2 M3 PO; +MEMA10 PO
[2025-01-08 11:04] LABS: BASOPHILS ABSOLUTE AUTO 0.04 K/mm3 (0.00-0.23); BASOPHILS PERCENT AUTO 0 % (0-2); EOSINOPHILS ABSOLUTE AUTO 0.20 K/mm3 (0.00-0.68); EOSINOPHILS PERCENT AUTO 2 % (0-6); Hematocrit 32.4 % (33.0-51.0); Hemoglobin 11.2 g/dL (11.5-16.0); IMMATURE GRAN ABSOLUTE AUTO 0.02 K/mm3 (0.00-0.10); IMMATURE GRAN PERCENT AUTO 0 % (0-1); LYMPHOCYTES ABSOLUTE AUTO 0.64 K/mm3 (0.84-5.20); LYMPHOCYTES PERCENT AUTO 7 % (21-46); MONOCYTES ABSOLUTE AUTO 0.68 K/mm3 (0.16-1.47); MONOCYTES PERCENT AUTO 7 % (4-13); Mean Corpuscular HGB Conc 34.6 g/dL (31.5-36.5); Mean Corpuscular Volume 98 fL (80-100); NEUTROPHILS ABSOLUTE AUTO 7.99 K/mm3 (1.96-9.15); NEUTROPHILS PERCENT AUTO 84 % (41-73); NRBC ABSOLUTE 0.00 K/mm3 (0.00-0.02); NRBC Auto 0.0 /100 WBC (0.0-0.2); Platelet Count 272 K/mm3 (150-400); RDW Coefficient Variation 11.5 % (11.7-14.2); RDW Standard Deviation 41.6 fL (35.1-46.3)
[2025-01-08 11:17] LABS: Alanine Aminotransfer (ALT/SGP 35.0 U/L (12-78); Albumin, Blood 3.7 g/dL (3.4-5.0); Albumin/Globulin Ratio 1.1 (0.8-1.8); Anion Gap 8.0 mmol/L (3-11); Aspartate Aminotrans (AST/SGOT 19.0 U/L (12-37); Bilirubin, Total 0.6 mg/dL (0.1-1.0); Blood Urea Nitrogen 18.0 mg/dL (8-24); CO2, Blood 28.0 mmol/L (21-32); Calcium, Blood 8.8 mg/dL (8.5-10.1); Chloride, Blood 97.0 mmol/L (98-108); Creatinine, Blood 1.16 mg/dL (0.40-1.00); Globulin, Blood 3.3 g/dL (2.2-4.0); Glucose, Blood 112.0 mg/dL (70-99); Magnesium, Blood 2.3 mg/dL (1.6-2.4); Potassium, Blood 4.7 mmol/L (3.5-5.5); Sodium, Blood 128.0 mmol/L (136-145); Total Protein, Blood 7.0 g/dL (6.4-8.2)
[2025-01-08] MEDS ORDERED: SODCHL1 PO (11:25)
[2025-01-08] MEDS ORDERED: CEPH500 PO (11:25)
[2025-01-08 13:00] VITALS: BP 143/72
== END 2025-01-08 14:06 | disposition home or self-care (01) ==
LOC: ER 10:36
PROVIDERS: Student in an Organized Health Care Education/Training Program
DX: N30.00 Acute cystitis without hematuria (principal); I10 Essential (primary) hypertension; Z79.2 Long term (current) use of antibiotics; Z79.899 Other long term (current) drug therapy; Z96.642 Presence of left artificial hip joint; Z88.0 Allergy status to penicillin; Z88.5 Allergy status to narcotic agent; Z88.1 Allergy status to other antibiotic agents; E87.1 Hypo-osmolality and hyponatremia
CPT/HCPCS: 80053; 83735; 85025; 93005; 93010; 99284-25; A9270

== ENCOUNTER 2025-01-11 11:04 | Emergency (ER) | payer MEDICARE ==
[~2025-01-11] VITALS: Ht 165.1 cm; Wt 72.6 kg
[~2025-01-11 11:04] MED LIST changes: +CEPH500 PO; +SODCHL1 PO
[2025-01-11 11:34] LABS: BASOPHILS ABSOLUTE AUTO 0.03 K/mm3 (0.00-0.23); BASOPHILS PERCENT AUTO 0 % (0-2); EOSINOPHILS ABSOLUTE AUTO 0.14 K/mm3 (0.00-0.68); EOSINOPHILS PERCENT AUTO 2 % (0-6); Hematocrit 31.7 % (33.0-51.0); Hemoglobin 11.0 g/dL (11.5-16.0); IMMATURE GRAN ABSOLUTE AUTO 0.03 K/mm3 (0.00-0.10); IMMATURE GRAN PERCENT AUTO 0 % (0-1); LYMPHOCYTES ABSOLUTE AUTO 0.83 K/mm3 (0.84-5.20); LYMPHOCYTES PERCENT AUTO 10 % (21-46); MONOCYTES ABSOLUTE AUTO 0.80 K/mm3 (0.16-1.47); MONOCYTES PERCENT AUTO 9 % (4-13); Mean Corpuscular HGB Conc 34.7 g/dL (31.5-36.5); Mean Corpuscular Volume 98 fL (80-100); NEUTROPHILS ABSOLUTE AUTO 6.83 K/mm3 (1.96-9.15); NEUTROPHILS PERCENT AUTO 79 % (41-73); NRBC ABSOLUTE 0.00 K/mm3 (0.00-0.02); NRBC Auto 0.0 /100 WBC (0.0-0.2); Platelet Count 303 K/mm3 (150-400); RDW Coefficient Variation 11.5 % (11.7-14.2); RDW Standard Deviation 41.9 fL (35.1-46.3)
[2025-01-11 12:00] VITALS: BP 154/61
[2025-01-11 12:03] LABS: Alanine Aminotransfer (ALT/SGP 30.0 U/L (12-78); Albumin, Blood 3.5 g/dL (3.4-5.0); Albumin/Globulin Ratio 1.1 (0.8-1.8); Anion Gap 3.0 mmol/L (3-11); Aspartate Aminotrans (AST/SGOT 16.0 U/L (12-37); Bilirubin, Total 0.7 mg/dL (0.1-1.0); Blood Urea Nitrogen 17.0 mg/dL (8-24); CO2, Blood 29.0 mmol/L (21-32); Calcium, Blood 8.9 mg/dL (8.5-10.1); Chloride, Blood 94.0 mmol/L (98-108); Creatinine, Blood 0.95 mg/dL (0.40-1.00); Globulin, Blood 3.2 g/dL (2.2-4.0); Glucose, Blood 102.0 mg/dL (70-99); Potassium, Blood 4.7 mmol/L (3.5-5.5); Sodium, Blood 121.0 mmol/L (136-145); Total Protein, Blood 6.7 g/dL (6.4-8.2)
[2025-01-11] MEDS ORDERED: NS 1,000 ML IV SCH (12:45)
== END 2025-01-11 13:47 | disposition home or self-care (01) ==
LOC: ER 11:04
PROVIDERS: Emergency Medicine
DX: E87.1 Hypo-osmolality and hyponatremia (principal); R25.1 Tremor, unspecified; I12.9 Hypertensive chronic kidney disease with stage 1 through stage 4 chronic kidney disease, or unspecified chronic kidney disease; N18.30 Chronic kidney disease, stage 3 unspecified; F03.90 Unspecified dementia, unspecified severity, without behavioral disturbance, psychotic disturbance, mood disturbance, and anxiety; Z88.0 Allergy status to penicillin; Z88.1 Allergy status to other antibiotic agents; Z88.5 Allergy status to narcotic agent; Z79.899 Other long term (current) drug therapy
CPT/HCPCS: 70450; 80053; 82947; 84484; 85025; 93005; 93010; 99284-25; J7030

== ENCOUNTER → 2025-03-17 | Outpatient (CLI) | payer MEDICARE ==
[~2025-03-17] MED LIST changes: +CITALOPRAM HBR10 MG PO; +DULCOLAX400 MG/5 M PO; +MIRALAX17 GM PO; +SENN187 PO
== END ==
LOC: LAB SHORT 18:32 → LAB 18:32
DX: R30.0 Dysuria (principal)
CPT/HCPCS: 87086